=== PATIENT | male | born 1985 ===

== ENCOUNTER 2023-12-15 10:02 | Inpatient (IN) | payer OTHER, SELFPAY ==
[2023-12-15 10:12] VITALS: BP 147/92; PULSE 107; RESP 18; TEMP 36.8; O2SAT 100; BMI 39.9
--- NOTE | 2023-12-15 10:14 | ECG_ITS ---
Test Reason : od Blood Pressure : / mmHG Vent. Rate : 101 BPM Atrial Rate : 101 BPM P-R Int : 160 ms QRS Dur : 096 ms QT Int : 368 ms P-R-T Axes : 016 -12 029 degrees QTc Int : 477 ms Sinus tachycardia Minimal voltage criteria for LVH, may be normal variant ( Kirvin product ) Borderline ECG No previous ECGs available Referred By: Maria Alejandra Reyna Electronically Signed By:GENIA FLORES MD
--- NOTE | 2023-12-15 10:17 | ED_ITS ---
HPI - Psych General Chief Complaint: Psychiatric Symptoms Stated Complaint: SI Time Seen by Provider: 12/15/23 10:08 Source: patient, EMS and old records reviewed Mode of arrival: EMS Limitations: other (poor historian) History of Present Illness ED Provider: RICHIE HPI Narrative: 38 yo male with PMH of anxiety, depression who reports SI came in via triage in triage room starting to take handfuls of 25mg hydroxyzine. He also states in SI attempt he took 20mg duloxetine but unclear time and how much. He reports SI. He will not talk much about anything else. From his 90 day supply we have accounted for 67 tablets it was filled at start of November, Duloxetine 20mg DR filled start of october with 1 month supply , Vyvanse also filled october unclear if he ingested it complaint: suicidal ideation and feels depressed Onset (ago): unknown Duration: getting worse History of same: Yes Relieving factors: none Exacerbating factors: none Context: significant life stressor Associated psychiatric symptoms: depression and suicidal ideation Associated symptoms: denies other symptoms Treatments prior to arrival: none If self harm: admits thoughts of self harm, has plan and has acted on plan Details of plan: ingested in waiting room Related Data Allergies Allergy/AdvReac Type Severity Reaction Status Date / Time No Known Allergies Allergy Verified 12/15/23 10:14 Review of Systems 2 Review of Systems: ROS unable to be obtained due to poor cooperation [facility] Past Medical History Attestation statement: The following information was validated with the patient. Source: old records reviewed Medical History (Updated 12/15/23 @ 10:39 by Maria Alejandra Reyna DO) Anxiety Depression Social History Social History (Updated 12/15/23 @ 10:32 by Maria Alejandra Reyna DO) Patient Tobacco Use Status: Refuse Tobacco use screen Smoked in Last 30 Days: No Use of substances other than those prescribed or required for medical reasons: Refusing to respond Advance Directives: No Advance Directives Information Provided: No Physical Exam 2 Vital Signs: Vital Signs: Last Vital Signs Temp 97.5 F 12/15/23 15:57 Pulse 105 H 12/15/23 15:57 Resp 16 12/15/23 15:57 BP 157/95 H 12/15/23 15:57 Pulse Ox 98 12/15/23 15:57 O2 Del Method Room Air 12/15/23 15:57 BMI result Body Mass Index 39.9 Appearance: Alert. Oriented X3. No acute distress. not giving much history Eyes: Pupils equal, round and reactive to light. 3mm ENT: Pharynx normal. Neck: Normal inspection. Neck supple. CVS: Normal heart rate and rhythm. Pulses normal. Respiratory: No respiratory distress. Breath sounds normal. Abdomen: Soft and nontender. Skin: Skin warm and dry. Normal skin color. Normal skin turgor. Extremities: No lower extremity edema. No calf ttp Neuro: Oriented X 3. No motor deficit. No sensory deficit. CN 2-12 intact, no clonus or hyperreflexia Course Course Course Narrative: no acute change still same neuro exam pupils 3mm reactive no clonus no signs of hyperactivity awake and following commands 317pm repeat labs normal neg tox at 4hrs neg aspirin LFT and chem normal Reevaluation(s) Reevaluation #1: signed out to Dr. Tucker pending further workup Medications Administered Discontinued Medications Generic Name Dose Route Start Last Admin Trade Name Freq PRN Reason Stop Dose Admin Charcoal 50 gm 12/15/23 10:14 12/15/23 10:15 Activated Charcoal 50 Gm/240 Ml Oral.Susp PO 12/15/23 10:15 Not Given ONCE ONE Medical Decision Making Medical Decision Making MDM Narrative: 38 yo male with mental health disorders who comes with a backpack full of medications it is really unclear what he ingested. I do not have a good history from him - at this time EKG, charcoal ordered which he refuses, basic labs and S12 in place - once medically cleared will likely obs for 6 to 8 hours will refer to CARE team Differential Diagnosis Differential Diagnoses: The differential diagnosis associated with the presentation includes SI attempt, overdose Admission/Observation Consideration of admission/observation: Escalation of care including admission/observation considered physician observation started at 1152am pending clearance S12 signed Consult Healthcare Provider Management of the patient was discussed with: Behavioral Health Provider Lab Data [facility] Lab Attestation statement: I reviewed the patient's lab results. 12/15/23 10:32 12/15/23 14:36 Labs: Lab Results 12/15/23 12/15/23 12/15/23 Range/Units 10:32 14:36 15:24 WBC 9.9 (4.8-10.8) X10*3/uL RBC 5.46 (4.60-5.80) X10*6/uL Hgb 15.7 (14.0-18.0) g/dl Hct 46.2 (42.0-52.0) % MCV 84.6 (80.0-98.0) fL MCH 28.8 (27.0-33.0) pg MCHC 34.0 (31.0-36.0) g/dl RDW 13.3 (11.0-16.0) % Plt Count 413 H (160-400) X10*3/uL MPV 8.9 L (9.4-12.4) fL Immature Gran % (Auto) 0.6 H (0.0-0.4) % Neut % (Auto) 71.0 (45-73) % Lymph % (Auto) 20.5 (20-40) % [place] % (Auto) 5.5 (2-11) % Eos % (Auto) 1.9 (0-4) % Baso % (Auto) 0.5 (0-2) % Lymph # (Auto) 2.0 (1.2-4.9) X10*3/uL [place] # (Auto) 0.5 (0.1-1.2) X10*3/uL Eos # (Auto) 0.2 (0.0-0.4) X10*3/uL Baso # (Auto) 0.1 (0.0-0.2) X10*3/uL Abs Immat Gran (auto) 0.06 H (0.00-0.03) X10*3/uL Absolute Neuts (auto) 7.0 (2.0-8.3) x10*3/uL Absolute Nucleated RBC 0.000 (0.0-0.012) X10*3/uL Nucleated RBC % (auto) 0.0 (0.0-0.2) /100WBC Sodium 138 138 (135-145) mmol/L Potassium 3.8 4.6 D (3.3-5.1) mmol/L Chloride 103 103 (96-108) mmol/L Carbon Dioxide 23 28 (22-29) mmol/L Anion Gap 16 12 (12-20) BUN 18 H 17 H (9-16) mg/dL Creatinine 0.89 1.04 (0.5-1.4) mg/dL Estim Creat Clear Calc 126.7 108.5 Estimated GFR > 60 > 60 POC Glucose 119 H (60-115) mg/dL Random Glucose 130 H 123 H (60-115) mg/dL Calcium 9.9 9.6 (8.4-10.2) mg/dL Magnesium 2.1 (1.6-2.6) mg/dL Total Bilirubin 0.5 0.5 (0.0-1.0) mg/dL Direct Bilirubin 0.1 0.1 (0.0-0.5) mg/dL AST 25 34 (5-37) U/L ALT 29 30 (0-40) U/L Alkaline Phosphatase 108 111 (39-117) U/L Total Protein 8.2 H 8.2 H (6.5-8.0) g/dL Albumin 4.5 4.5 (3.5-5.0) g/dL Salicylates < 5.0 L < 5.0 L (15-30) mg/dL Acetaminophen < 3 < 3 (<30) mcg/mL Ethyl Alcohol < 10 mg/dL Independent Interpretation I performed an independent interpretation of an: EKG Interpretation: Rate: 101 Rhythm: sinus tachycardia [place]: left Normal P waves. Normal VER[place]NICA. Normal QRS complex. 96 ST T wave : no BUDDY qTC: 411 prior studies: no acute ischemia The study has been interpreted contemporaneously by me. EKG #2 Rate: 94 Rhythm:NSR [place]: left, LVH Normal P waves. Normal VERÓNICA. Normal QRS complex. 100 ST T wave : no BUDDY, no acute ischemia qTC: 470 prior studies: prior QRS 96 The study has been interpreted contemporaneously by me. EKG #3 Rate: 102 Rhythm: sinus tachycardia [place]: left Normal P waves. Normal VER[place]NICA. Normal QRS complex. 90 ST T wave : no acute ischemia qTC: 477 prior studies: QRS less The study has been interpreted contemporaneously by me. . Critical Care Time Critical Care Time Critical Care Time: Yes Total Critical Care Time: 45 Attestation: repeat labs, intervention of overdose, 3 EKGs, tele, review of records I attest to this time spent taking care of the patient Discharge Plan Discharge Clinical Impression: Suicidal ideation Patient Disposition: Still a Patient Interventions: Lamont-Suicide Risk Severity Scale Last Done: 12/15/23 10:22 Print Language: Pashto
--- NOTE | 2023-12-15 10:25 | PC.NURSE ---
pt refusing activated charcoal. Dr. Reyna notified
[2023-12-15 10:37] LABS: MANUAL DIFF FLAG NO
[2023-12-15 10:39] LABS: Basophils Absolute Auto 0.1 X10*3/uL (0.0-0.2); Basophils Percent Auto 0.5 % (0-2); Eosinophils Absolute Auto 0.2 X10*3/uL (0.0-0.4); Eosinophils Percent Auto 1.9 % (0-4); Hematocrit 46.2 % (42.0-52.0); Hemoglobin 15.7 g/dl (14.0-18.0); Imm Gran Abs Auto 0.06 X10*3/uL (0.00-0.03); Imm Gran Pct Auto 0.6 % (0.0-0.4); Lymphocytes Percent Auto 20.5 % (20-40); Mean Corpuscular Hemoglobin 28.8 pg (27.0-33.0); Mean Corpuscular Volume 84.6 fL (80.0-98.0); Mean Platelet Volume 8.9 fL (9.4-12.4); Monocytes Absolute Auto 0.5 X10*3/uL (0.1-1.2); Monocytes Percent Auto 5.5 % (2-11); Platelet Count 413 X10*3/uL (160-400); Red Blood Count 5.46 X10*6/uL (4.60-5.80); Red Cell Distribution Width 13.3 % (11.0-16.0); White Blood Count 9.9 X10*3/uL (4.8-10.8)
--- NOTE | 2023-12-15 10:42 | PC.NURSE ---
it is unclear how many meds the pt took. We ave accounted for [address] Reyna about calling poison control. At this time Dr Reyna said hold off as we do know know what the pt took. Pt refused activated charcoal. Plan to observe for 6-8 hours. labs, ekg.
[2023-12-15 10:55] LABS: Alanine Aminotransferase 29 U/L (0-40); Albumin Level 4.5 g/dL (3.5-5.0); Alkaline Phosphatase 108 U/L (39-117); Anion Gap 16 (12-20); Aspartate Amino Transferase 25 U/L (5-37); Bilirubin Direct 0.1 mg/dL (0.0-0.5); Bilirubin Total 0.5 mg/dL (0.0-1.0); Blood Urea Nitrogen 18 mg/dL (9-16); Calcium 9.9 mg/dL (8.4-10.2); Carbon Dioxide 23 mmol/L (22-29); Chloride 103 mmol/L (96-108); Creatinine Clr Calc Pharmacy 126.7; Estimated Glomerular Filt Rate > 60; Ethanol < 10 mg/dL; Glucose Random 130 mg/dL (60-115); Magnesium 2.1 mg/dL (1.6-2.6); Potassium 3.8 mmol/L (3.3-5.1); Sodium 138 mmol/L (135-145); Total Protein 8.2 g/dL (6.5-8.0)
[2023-12-15 10:56] LABS: Acetaminophen LAB < 3 mcg/mL (<30); Salicylate < 5.0 mg/dL (15-30)
--- NOTE | 2023-12-15 13:00 | ECG_ITS ---
Test Reason : overdose Blood Pressure : / mmHG Vent. Rate : 094 BPM Atrial Rate : 094 BPM P-R Int : 162 ms QRS Dur : 100 ms QT Int : 376 ms P-R-T Axes : 020 -04 022 degrees QTc Int : 470 ms Normal sinus rhythm Minimal voltage criteria for LVH, may be normal variant ( Bruno product ) Borderline ECG When compared with ECG of 15-DEC-2023 10:55, No significant change was found Referred By: Mraia Alejandra Reyna Electronically Signed By:GENIA FLORES MD
[2023-12-15 13:24] VITALS: BP 122/92; PULSE 103; RESP 18; TEMP 36.6; O2SAT 98
--- NOTE | 2023-12-15 15:00 | ECG_ITS ---
Test Reason : Overdose Blood Pressure : / mmHG Vent. Rate : 102 BPM Atrial Rate : 102 BPM P-R Int : 160 ms QRS Dur : 090 ms QT Int : 366 ms P-R-T Axes : 022 -11 022 degrees QTc Int : 477 ms Sinus tachycardia Minimal voltage criteria for LVH, may be normal variant ( Bruno product ) Possible Anterior infarct , age undetermined Abnormal ECG When compared with ECG of 15-DEC-2023 13:12, No significant change was found Referred By: Maria Alejandra Reyna Electronically Signed By:GENIA FLORES MD
[2023-12-15 15:06] LABS: Acetaminophen LAB < 3 mcg/mL (<30); Alanine Aminotransferase 30 U/L (0-40); Albumin Level 4.5 g/dL (3.5-5.0); Alkaline Phosphatase 111 U/L (39-117); Anion Gap 12 (12-20); Aspartate Amino Transferase 34 U/L (5-37); Bilirubin Direct 0.1 mg/dL (0.0-0.5); Bilirubin Total 0.5 mg/dL (0.0-1.0); Blood Urea Nitrogen 17 mg/dL (9-16); Calcium 9.6 mg/dL (8.4-10.2); Carbon Dioxide 28 mmol/L (22-29); Chloride 103 mmol/L (96-108); Creatinine Clr Calc Pharmacy 108.5; Estimated Glomerular Filt Rate > 60; Glucose Random 123 mg/dL (60-115); Potassium 4.6 mmol/L (3.3-5.1); Salicylate < 5.0 mg/dL (15-30); Sodium 138 mmol/L (135-145); Total Protein 8.2 g/dL (6.5-8.0)
--- NOTE | 2023-12-15 15:13 | MHC.EDTECH ---
3pm ECG completed and given to provider.
[2023-12-15 15:28] LABS: Glucose, Whole Blood 119 mg/dL (60-115)
--- NOTE | 2023-12-15 15:40 | PC.NURSE ---
pt reported to I:I sitter that he was hearing voices telling him to harm himself
[2023-12-15 15:57] VITALS: BP 157/95; PULSE 105; RESP 16; TEMP 36.4; O2SAT 98
--- NOTE | 2023-12-15 17:00 | ECG_ITS ---
Test Reason : overdose Blood Pressure : / mmHG Vent. Rate : 103 BPM Atrial Rate : 103 BPM P-R Int : 160 ms QRS Dur : 090 ms QT Int : 360 ms P-R-T Axes : 019 -13 034 degrees QTc Int : 471 ms Sinus tachycardia Minimal voltage criteria for LVH, may be normal variant ( Bruno product ) Possible Anterior infarct (cited on or before 15-DEC-2023) Abnormal ECG When compared with ECG of 15-DEC-2023 14:59, No significant change was found Referred By: Maria Alejandra Reyna Electronically Signed By:GENIA FLORES MD
--- NOTE | 2023-12-15 17:03 | MHC.EDTECH ---
pt used his bus monitor cord to strangled himself, stating he wants to kill himself.
--- NOTE | 2023-12-15 17:33 | MHC.EDTECH ---
ECG completed at 1720.
--- NOTE | 2023-12-15 18:04 | PC.NURSE ---
Assumed care of patient at 1800, patient is calm and cooperative, offering no complaints to this RN. Pt has flat affect, often staring into the distance when attempting to answer this RNs questions. Patient is aware of plan of care for CARE team kika now that he is medically cleared Pt reports he receives his medications from [facility] pharmacy in [place]. Pt is unable to recall any medication names at this time
--- NOTE | 2023-12-15 18:52 | PC.NURSE ---
patient appears to remain at rest respirations are even and unlabored patient appears in no distress
--- NOTE | 2023-12-15 21:47 | MHC.CARE ---
Patient was provided information regarding patient concerns or complaints while awaiting placement in the ED. It was explained that if dissatisfied with any services received that he is able to speak directly with a manager game or leases and land supervisor or if needed can contact the concern line and was provided the appropriate contact information. Pt was receptive to the resources provided at this time.
--- NOTE | 2023-12-16 00:12 | PC.ADMIT ---
Pt is a 38yo male, admitted on a 12b from the [facility] for SI and MDD. He has a past medical history of anxiety and depression. Patient came into the ED after a suicide attempt ingesting an unknown amount of personal medication, hydroxyzine and duloxetine. He refused charcoal to be administered in the ED. Lab work was completed and Urine toxicology refused. Patient did not talk much about anything else while in the POD. Patient arrived to M3 at 21:44 via wheelchair. Upon skin assessment, patient was found to have ekg stickers with leads attached to chest. Patient was asked to remove these which he then tried to tighten around his neck in an attempt of self harm. Staff was able to remove the leads with success. associate professor of kinesiology provider was notified and patient was placed on 1:1 for safety. Patient appears to be agitated and paranoid. He states AH They confuse me. They tell me not to trust anyone, but I don't know who to believe. Patient did not offer any other information and refused to speak with any staff. Poor eye contact was noted the entire time of trying to admit patient, which was not able to be done due to not complying nor speaking. Patient refused to sign any paperwork and refused vital signs. Order for PRN Ativan and Haldol was offered, but patient refused to take. Patient seen pacing hallway and standing at nurses station the entire shift, refusing to lay down for the night.
[2023-12-16] MEDS: LORazepam 1 MG TABLET 2 MG PO (01:00)
[2023-12-16 08:05] VITALS: BP 128/74; PULSE 104; RESP 16; TEMP 36.9; O2SAT 97
[2023-12-16 09:31] LABS: Estimated Average Glucose 117 mg/dL; Hemoglobin A1C 153.1763 umol/L; Hemoglobin A1c % 5.7 % (<6.0)
[2023-12-16 09:36] LABS: Cholesterol 252 mg/dL (<200); HDL Cholesterol 34 mg/dL (>40); LDL Cholesterol Calculated 182 mg/dL (<100); Magnesium 2.1 mg/dL (1.6-2.6); Triglycerides 183 mg/dL (<150)
[2023-12-16 10:17] LABS: Vitamin B12 607 pg/mL (200-900)
[2023-12-16 10:33] VITALS: BMI 41.7
[2023-12-16 11:22] LABS: Free T4 (Free Thyroxine) 1.23 ng/dL (0.71-1.85)
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
[2023-12-16] MEDS: risperiDONE 1 MG TABLET PO ×2 (12:44→22:10)
--- NOTE | 2023-12-16 14:11 | PHA.MEDREC ---
Pharmacy Consult ? Medication Reconciliation Pharmacy has completed the medication reconciliation, called [facility] in [place] who confirmed medications. [facility] also stated Testosterone was last filled in August 2023.
[2023-12-16 14:46] VITALS: BP 126/76; PULSE 101; RESP 16; TEMP 36.8; O2SAT 96
[2023-12-16] MEDS: carvediloL 12.5 MG TABLET PO ×2 (14:47→22:09)
[2023-12-16] MEDS: cloNIDine HCL 0.1 MG TABLET PO ×2 (14:48→22:09)
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
[2023-12-16 22:09] VITALS: BP 116/66; PULSE 96
[2023-12-16] MEDS: valACYclovir HCL 1,000 MG TABLET 1000 MG PO (22:10)
[2023-12-17 01:25] VITALS: TEMP 36.2
[2023-12-17] MEDS: Acetaminophen 325 MG TABLET 650 MG PO ×2 (01:29→20:42)
[2023-12-17 07:25] VITALS: BP 113/74; PULSE 104; RESP 14; TEMP 36.9; O2SAT 97
[2023-12-17 09:13] VITALS: BP 113/74; PULSE 104
[2023-12-17] MEDS: risperiDONE 1 MG TABLET PO ×2 (09:13→20:37)
[2023-12-17] MEDS: carvediloL 12.5 MG TABLET PO ×2 (09:13→20:36)
[2023-12-17 09:14] VITALS: BP 113/74
[2023-12-17] MEDS: cloNIDine HCL 0.1 MG TABLET PO ×2 (09:14→20:36)
--- NOTE | 2023-12-17 11:33 | P.PNPSI_ITS ---
Subjective Subjective Date of Service: 12/17/23 Reason For Visit: Depression, SI Interim History: Patient seen. He continues on 1:1 due to safety. He reports he is anxious and restless. Remains preoccupied and has latency of speech and slow in answering questions. Appears internally preoccupied. He was restless in the interview moving legs and having a hard time sitting still. Was resistant to mouth checks and security had to be called. We discussed utility if same with RN. Will hold off for now on calling security for mouth checks. We discussed his testosterone which he says he gets prescribed by [employer] and he takes it weekly. Last dose was last Tuesday. He also has Vyvanse prescribed he says. (Both didn't show up on the PDMP). Review of Systems Review of Systems ROS unable to be obtained due to poor cooperation Constitutional: Reports as per HPI Eyes: Reports as per HPI Reports as per HPI Cardiovascular: Reports as per HPI Respiratory: Reports as per HPI Gastrointestinal: Reports as per HPI Genitourinary: Reports as per HPI Musculoskeletal: Reports as per HPI Skin/Breast: Reports as per HPI Reports as per HPI Psychiatric: Reports as per HPI Endocrine: Reports as per HPI Hematologic/Lymphatic: Reports as per HPI Allergic/Immunologic: Reports as per HPI Mental Status Exam Mental Status Exam Patient Appearance: Appropriate Patient Orientation: Person Level of Consciousness: Awake and Alert Patient Behavior: Guarded, Suspicious, Anxious and Poor Eye Contact Mood Description: Suspicious and Anxious Affect Description: Blunted Speech Pattern: Clear Diagnostics Vital Signs (24Hr): Vital Signs - 24 hr 12/16/23 14:46 12/16/23 22:09 12/16/23 22:09 Temperature 98.2 F Pulse Rate 101 H 96 Respiratory Rate 16 Blood Pressure 126/76 116/66 116/66 Pulse Oximetry 96 Oxygen Delivery Method Room Air 12/17/23 01:25 12/17/23 07:25 12/17/23 09:13 Temperature 97.1 F 98.4 F Pulse Rate 104 H 104 H Respiratory Rate 14 Blood Pressure 113/74 113/74 Pulse Oximetry 97 Oxygen Delivery Method Room Air 12/17/23 09:14 Temperature Pulse Rate Respiratory Rate Blood Pressure 113/74 Pulse Oximetry Oxygen Delivery Method BMI result Body Mass Index 41.7 Labs 12/15/23 10:32 12/15/23 14:36 Labs: Laboratory Results - last 48 hr 12/15/23 12/15/23 12/16/23 14:36 15:24 08:53 Sodium 138 Potassium 4.6 D Chloride 103 Carbon Dioxide 28 Anion Gap 12 BUN 17 H Creatinine 1.04 Estim Creat Clear Calc 108.5 Estimated GFR > 60 POC Glucose 119 H Random Glucose 123 H Estimat Average Glucose 117 Hemoglobin A1c % 5.7 Calcium 9.6 Magnesium 2.1 Total Bilirubin 0.5 Direct Bilirubin 0.1 AST 34 ALT 30 Alkaline Phosphatase 111 Total Protein 8.2 H Albumin 4.5 Triglycerides 183 H Cholesterol 252 H LDL Cholesterol, Calc 182 H HDL Cholesterol 34 L Vitamin B12 607 Folate 13.0 TSH 2.40 Free T4 1.23 Salicylates < 5.0 L Acetaminophen < 3 Medications Medications Current Medications Acetaminophen (Acetaminophen 325 Mg Tablet) 650 mg PO Q6H PRN PRN Reason: Headache/Pain Mild Scale (1-3) Last Admin: 12/17/23 01:29 Dose: 650 mg Al Hydroxide/Mg Hydroxide (Magnesium Hydrox/Alum Hydrox 30 Ml Oral.Susp) 30 ml PO Q6H PRN PRN Reason: Heartburn/Nausea Albuterol Sulfate (Albuterol Sulfate 90 Mcg 8 Gm Inhaler) 2 puff INHALE Q6H PRN PRN Reason: Shortness of Breath Carvedilol (Carvedilol 12.5 Mg Tablet) 12.5 mg PO BID [facility]; Protocol Last Admin: 12/17/23 09:13 Dose: 12.5 mg Clonidine HCl (Clonidine Hcl 0.1 Mg Tablet) 0.1 mg PO BID [facility]; Protocol Last Admin: 12/17/23 09:14 Dose: 0.1 mg Magnesium Hydroxide (Milk Of Magnesia 30 Ml Oral.Susp) 30 ml PO DAILY PRN PRN Reason: Constipation Non-Formulary Medication (Lisdexamfetamine [Vyvanse]) 50 mg PO DAILY PRN PRN Reason: ADHD Risperidone (Risperidone 1 Mg Tablet) 1 mg PO BID [facility] Last Admin: 12/17/23 09:13 Dose: 1 mg Valacyclovir HCl (Valacyclovir Hcl 1,000 Mg Tablet) 1,000 mg PO BEDTIME [facility] Last Admin: 12/16/23 22:10 Dose: 1,000 mg Zolpidem Tartrate (Zolpidem Tartrate 5 Mg Tablet) 5 mg PO BEDTIME [facility] Last Admin: 12/16/23 22:20 Dose: Not Given Allergies Allergies Allergy/AdvReac Type Severity Reaction Status Date / Time No Known Allergies Allergy Verified 12/15/23 10:14 Assessment & Plan Assessment & Plan (1) MDD (major depressive disorder), recurrent, severe, with psychosis: Status: Acute Code(s): F33.3 - Major depressive disorder, recurrent, severe with psychotic symptoms (2) PTSD (post-traumatic stress disorder): Status: Acute Code(s): F43.10 - Post-traumatic stress disorder, unspecified (3) OCD (obsessive compulsive disorder): Status: Acute Code(s): F42.9 - Obsessive-compulsive disorder, unspecified (4) ADHD (attention deficit hyperactivity disorder): Status: Acute Code(s): F90.9 - Attention-deficit hyperactivity disorder, unspecified type Plan Patient is a 38-year-old transgender male who self presented to ER from [facility] due to suicidal ideation secondary to increased depressive symptoms. Plan: 12 b One-to-one Continue home medications; hold hydroxyzine and duloxetine for now Start: Risperdal 1 mg p.o. b.i.d. Obtain collateral Encourage groups Build rapport Discharge planning 12/16: Start Cogentin 0.5 mg BID. Collaterals from [facility] after weekend. Reason for continued inpatient stay Substantial Risk for: harm to self, inability to function and rapid decompensation Time Spent With Patient Time: Total time managing care of this patient today ____ minutes.
--- NOTE | 2023-12-17 14:21 | PC.NURSE ---
The pharmacy does not have Vyvanse. The patient was updated and will ask his mother to bring the medication in, pharmacy notified.
[2023-12-17 20:00] VITALS: BP 121/71; PULSE 92; RESP 16; TEMP 36.9; O2SAT 97
[2023-12-17] MEDS: valACYclovir HCL 1,000 MG TABLET 1000 MG PO (20:36)
[2023-12-17] MEDS: Benztropine Mesylate 0.5 MG TABLET PO (20:37)
[2023-12-18] MEDS: risperiDONE 1 MG TABLET PO ×2 (08:21→21:06)
[2023-12-18] MEDS: Benztropine Mesylate 0.5 MG TABLET PO ×2 (08:21→21:06)
[2023-12-18 08:33] VITALS: BP 118/70; PULSE 104; RESP 20; TEMP 36.8; O2SAT 97
[2023-12-18] MEDS: cloNIDine HCL 0.1 MG TABLET PO ×2 (08:36→21:06)
[2023-12-18] MEDS: carvediloL 12.5 MG TABLET PO ×2 (08:36→21:05)
--- NOTE | 2023-12-18 11:28 | HO.PSYCHPN ---
Subjective Subjective Date of Service: 12/18/23 Reason For Visit: Depression, SI Interim History: Patient seen. He continues on 1:1 due to safety. He is asking for his clothes back but he continues to endorse intermittent SI. Clarified policy re access to street clothes. He appears more organized today. He seems less internally preoccupied. No side effects with Risperidone. Cogentin may have helped with restlessness. Patient reports still a little difficult to interpret and he's ambivalent. He seems somewhat confused about his medications. He tells this mortgage underwriter that medications were lost but on discussing with RN, pharmacy has his medications but they were not all labeled correctly. Appears internally preoccupied. Reviewed the [facility] website (not through [employer]) and verified patient is prescribed Testosterone, Vyvanse 50 mg and Ambien 5 mg. However they were last filled in May 2023. Complains of intermittent hallucinations and SI. Review of Systems Review of Systems ROS unable to be obtained due to poor cooperation Constitutional: Reports as per HPI Eyes: Reports as per HPI Reports as per HPI Cardiovascular: Reports as per HPI Respiratory: Reports as per HPI Gastrointestinal: Reports as per HPI Genitourinary: Reports as per HPI Musculoskeletal: Reports as per HPI Skin/Breast: Reports as per HPI Reports as per HPI Psychiatric: Reports as per HPI Endocrine: Reports as per HPI Hematologic/Lymphatic: Reports as per HPI Allergic/Immunologic: Reports as per HPI Mental Status Exam Mental Status Exam Patient Appearance: Appropriate Patient Orientation: Person Level of Consciousness: Awake and Alert Patient Behavior: Guarded, Suspicious, Anxious and Poor Eye Contact Mood Description: Suspicious and Anxious Affect Description: Blunted Speech Pattern: Clear Diagnostics Vital Signs (24Hr): Vital Signs - 24 hr 12/17/23 20:00 12/18/23 08:33 Temperature 98.4 F 98.3 F Pulse Rate 92 104 H Respiratory Rate 16 20 Blood Pressure 121/71 118/70 Pulse Oximetry 97 97 Oxygen Delivery Method Room Air Room Air BMI result Body Mass Index 41.7 Labs 12/15/23 10:32 12/15/23 14:36 Medications Medications Current Medications Acetaminophen (Acetaminophen 325 Mg Tablet) 650 mg PO Q6H PRN PRN Reason: Headache/Pain Mild Scale (1-3) Last Admin: 12/17/23 20:42 Dose: 650 mg Al Hydroxide/Mg Hydroxide (Magnesium Hydrox/Alum Hydrox 30 Ml Oral.Susp) 30 ml PO Q6H PRN PRN Reason: Heartburn/Nausea Albuterol Sulfate (Albuterol Sulfate 90 Mcg 8 Gm Inhaler) 2 puff INHALE Q6H PRN PRN Reason: Shortness of Breath Benztropine Mesylate (Benztropine Mesylate 0.5 Mg Tablet) 0.5 mg PO BID [facility] Last Admin: 12/18/23 08:21 Dose: 0.5 mg Carvedilol (Carvedilol 12.5 Mg Tablet) 12.5 mg PO BID [facility]; Protocol Last Admin: 12/18/23 08:36 Dose: 12.5 mg Clonidine HCl (Clonidine Hcl 0.1 Mg Tablet) 0.1 mg PO BID [facility]; Protocol Last Admin: 12/18/23 08:36 Dose: 0.1 mg Magnesium Hydroxide (Milk Of Magnesia 30 Ml Oral.Susp) 30 ml PO DAILY PRN PRN Reason: Constipation Pt Own ( Lisdexamfetamine [ Vyvanse] 50 Mg Capsule) 50 mg PO DAILY PRN PRN Reason: ADHD Risperidone (Risperidone 1 Mg Tablet) 1 mg PO BID [facility] Last Admin: 12/18/23 08:21 Dose: 1 mg Valacyclovir HCl (Valacyclovir Hcl 1,000 Mg Tablet) 1,000 mg PO BEDTIME [facility] Last Admin: 12/17/23 20:36 Dose: 1,000 mg Zolpidem Tartrate (Zolpidem Tartrate 5 Mg Tablet) 5 mg PO BEDTIME [facility] Last Admin: 12/17/23 21:19 Dose: Not Given Allergies Allergies Allergy/AdvReac Type Severity Reaction Status Date / Time No Known Allergies Allergy Verified 12/15/23 10:14 Assessment & Plan Assessment & Plan (1) MDD (major depressive disorder), recurrent, severe, with psychosis: Status: Acute Code(s): F33.3 - Major depressive disorder, recurrent, severe with psychotic symptoms (2) PTSD (post-traumatic stress disorder): Status: Acute Code(s): F43.10 - Post-traumatic stress disorder, unspecified (3) OCD (obsessive compulsive disorder): Status: Acute Code(s): F42.9 - Obsessive-compulsive disorder, unspecified (4) ADHD (attention deficit hyperactivity disorder): Status: Acute Code(s): F90.9 - Attention-deficit hyperactivity disorder, unspecified type Plan Patient is a 38-year-old transgender male who self presented to ER from [facility] due to suicidal ideation secondary to increased depressive symptoms. Plan: 12 b One-to-one Continue home medications; hold hydroxyzine and duloxetine for now Start: Risperdal 1 mg p.o. b.i.d. Obtain collateral Encourage groups Build rapport Discharge planning 12/16: Start Cogentin 0.5 mg BID. [facility] 12/17: Consider Risperidone titration. Collateral information. Reason for continued inpatient stay Substantial Risk for: harm to self, inability to function and rapid decompensation Time Spent With Patient Time: Total time managing care of this patient today ____ minutes.
[2023-12-18 20:00] VITALS: BP 132/72; PULSE 89
[2023-12-18] MEDS: valACYclovir HCL 1,000 MG TABLET 1000 MG PO (21:05)
[2023-12-19 08:21] VITALS: BP 109/72; PULSE 96; RESP 16; TEMP 36.4; O2SAT 99
[2023-12-19] MEDS: risperiDONE 1 MG TABLET PO (08:24)
[2023-12-19] MEDS: cloNIDine HCL 0.1 MG TABLET PO ×2 (08:24→20:26)
[2023-12-19] MEDS: Benztropine Mesylate 0.5 MG TABLET PO ×2 (08:25→20:27)
[2023-12-19] MEDS: carvediloL 12.5 MG TABLET PO ×2 (08:25→20:26)
--- NOTE | 2023-12-19 10:15 | P.PNPSI_ITS ---
Subjective Subjective Date of Service: 12/19/23 Reason For Visit: Depression, SI Subjective Notes: Section 12B Interim History: Patient on 12B up on 12/21/23. Patient declined to sign conditional voluntary. Continues to present paranoid and anxious. Patient stated, I do not trust any of you . . Continues on one-to-one safety checks. T/W and director social service, Jessica, met with patients mother for family meeting. Patient's mother states she does not know patient's past medication trials since pt has been private regarding his treatment. She reports never seeing him this way before . Collateral to be obtained from outpatient providers. Risperidal increased to 1mg PO daily and 2mg PO bedtime. Medication Compliance: Yes Side effects from medications: No Review of Systems Constitutional: Reports as per HPI Eyes: Reports as per HPI Reports as per HPI Cardiovascular: Reports as per HPI Respiratory: Reports as per HPI Gastrointestinal: Reports as per HPI Genitourinary: Reports as per HPI Musculoskeletal: Reports as per HPI Skin/Breast: Reports as per HPI Reports as per HPI Psychiatric: Reports as per HPI Endocrine: Reports as per HPI Hematologic/Lymphatic: Reports as per HPI Allergic/Immunologic: Reports as per HPI Mental Status Exam Mental Status Exam Patient Appearance: Appropriate Patient Orientation: Person, Place and Situation Level of Consciousness: Awake and Alert Patient Behavior: Guarded, Suspicious, Anxious and Poor Eye Contact Mood Description: Suspicious and Anxious Affect Description: Blunted Ability to Follow Directions: Fair Speech Pattern: Clear Delusions: Paranoid Ideation Diagnostics Vital Signs (24Hr): Vital Signs - 24 hr 12/18/23 20:00 12/19/23 08:21 Temperature 97.6 F Pulse Rate 89 96 Respiratory Rate 16 Blood Pressure 132/72 109/72 Pulse Oximetry 99 Oxygen Delivery Method Room Air BMI result Body Mass Index 41.7 Labs 12/15/23 10:32 12/15/23 14:36 Medications Medications Current Medications Acetaminophen (Acetaminophen 325 Mg Tablet) 650 mg PO Q6H PRN PRN Reason: Headache/Pain Mild Scale (1-3) Last Admin: 12/17/23 20:42 Dose: 650 mg Al Hydroxide/Mg Hydroxide (Magnesium Hydrox/Alum Hydrox 30 Ml Oral.Susp) 30 ml PO Q6H PRN PRN Reason: Heartburn/Nausea Albuterol Sulfate (Albuterol Sulfate 90 Mcg 8 Gm Inhaler) 2 puff INHALE Q6H PRN PRN Reason: Shortness of Breath Benztropine Mesylate (Benztropine Mesylate 0.5 Mg Tablet) 0.5 mg PO BID [facility] Last Admin: 12/19/23 08:25 Dose: 0.5 mg Carvedilol (Carvedilol 12.5 Mg Tablet) 12.5 mg PO BID [facility]; Protocol Last Admin: 12/19/23 08:25 Dose: 12.5 mg Clonidine HCl (Clonidine Hcl 0.1 Mg Tablet) 0.1 mg PO BID [facility]; Protocol Last Admin: 12/19/23 08:24 Dose: 0.1 mg Magnesium Hydroxide (Milk Of Magnesia 30 Ml Oral.Susp) 30 ml PO DAILY PRN PRN Reason: Constipation Pt Own ( Lisdexamfetamine [ Vyvanse] 50 Mg Capsule) 50 mg PO DAILY PRN PRN Reason: ADHD Risperidone (Risperidone 1 Mg Tablet) 1 mg PO BID [facility] Last Admin: 12/19/23 08:24 Dose: 1 mg Valacyclovir HCl (Valacyclovir Hcl 1,000 Mg Tablet) 1,000 mg PO BEDTIME [facility] Last Admin: 12/18/23 21:05 Dose: 1,000 mg Zolpidem Tartrate (Zolpidem Tartrate 5 Mg Tablet) 5 mg PO BEDTIME [facility] Last Admin: 12/18/23 21:04 Dose: Not Given Allergies Allergies Allergy/AdvReac Type Severity Reaction Status Date / Time No Known Allergies Allergy Verified 12/15/23 10:14 Assessment & Plan Assessment & Plan (1) MDD (major depressive disorder), recurrent, severe, with psychosis: Status: Acute Code(s): F33.3 - Major depressive disorder, recurrent, severe with psychotic symptoms (2) PTSD (post-traumatic stress disorder): Status: Acute Code(s): F43.10 - Post-traumatic stress disorder, unspecified (3) OCD (obsessive compulsive disorder): Status: Acute Code(s): F42.9 - Obsessive-compulsive disorder, unspecified (4) ADHD (attention deficit hyperactivity disorder): Status: Acute Code(s): F90.9 - Attention-deficit hyperactivity disorder, unspecified type Plan Patient is a 38-year-old transgender male who self presented to ER from [facility] due to suicidal ideation secondary to increased depressive symptoms. Plan: 12 b One-to-one Continue home medications; hold hydroxyzine and duloxetine for now Start: Risperdal 1 mg p.o. b.i.d. Obtain collateral Encourage groups Build rapport Discharge planning 12/16: Start Cogentin 0.5 mg BID. Collaterals from [facility] after weekend. 12/17: Consider Risperidone titration. Collateral information. 12/18: Patient on 12B up on 12/21/23. Patient declined to sign conditional voluntary. Continues to present paranoid and anxious. Patient stated, I do not trust any of you . . Continues on one-to-one safety checks. T/W and director social service, Jessica, met with patients mother for family meeting. Patient's mother states she does not know patient's past medication trials since pt has been private regarding his treatment. She reports never seeing him this way before . Collateral to be obtained from outpatient providers. Risperidal increased to 1mg PO daily and 2mg PO bedtime. Patient educated on: diagnosis and medication risk/benefits Guardian/Caregiver educated on: diagnosis and medication risk/benefits Reason for continued inpatient stay Substantial Risk for: harm to self and med/psych decompensation Time Spent With Patient Time: Total time managing care of this patient today _30___ minutes.
[2023-12-19 20:00] VITALS: BP 110/74; PULSE 80; RESP 16; TEMP 37; O2SAT 96
[2023-12-19] MEDS: valACYclovir HCL 1,000 MG TABLET 1000 MG PO (20:25)
[2023-12-19] MEDS: risperiDONE 2 MG TABLET PO (20:26)
[2023-12-20 07:36] VITALS: BP 95/60; PULSE 86; RESP 18; TEMP 37.2; O2SAT 98
[2023-12-20] MEDS: cloNIDine HCL 0.1 MG TABLET PO ×2 (08:09→21:11)
[2023-12-20] MEDS: risperiDONE 1 MG TABLET PO (08:09)
[2023-12-20] MEDS: Benztropine Mesylate 0.5 MG TABLET PO ×2 (08:10→21:10)
[2023-12-20] MEDS: carvediloL 12.5 MG TABLET PO ×2 (08:10→21:10)
[2023-12-20] MEDS: Flu Vacc TS2024-25(6mos up)/PF 0.5 ML SYRINGE IM (08:34)
[2023-12-20] MEDS: Acetaminophen 325 MG TABLET 650 MG PO (08:42)
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
[2023-12-20] MEDS: DULoxetine HCl 20 MG CAPSULE.DR PO (14:02)
[2023-12-20 20:00] VITALS: BP 105/67; PULSE 84; RESP 16; TEMP 36.8; O2SAT 98
[2023-12-20] MEDS: risperiDONE 2 MG TABLET PO (21:10)
[2023-12-20] MEDS: valACYclovir HCL 1,000 MG TABLET 1000 MG PO (21:10)
[2023-12-21 07:40] VITALS: BP 105/69; PULSE 77; RESP 14; TEMP 36.9; O2SAT 98
[2023-12-21] MEDS: Benztropine Mesylate 0.5 MG TABLET PO ×2 (08:37→21:13)
[2023-12-21] MEDS: cloNIDine HCL 0.1 MG TABLET PO ×2 (08:37→21:13)
[2023-12-21] MEDS: carvediloL 12.5 MG TABLET PO ×2 (08:38→21:13)
[2023-12-21] MEDS: risperiDONE 1 MG TABLET PO (08:38)
[2023-12-21] MEDS: DULoxetine HCl 20 MG CAPSULE.DR PO (08:38)
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
[2023-12-21] MEDS: Acetaminophen 325 MG TABLET 650 MG PO (10:50)
[2023-12-21] MEDS: hydrOXYzine HCL 50 MG TABLET PO (16:28)
[2023-12-21 19:45] VITALS: BP 134/83; PULSE 69; RESP 18; TEMP 36.9; O2SAT 98
[2023-12-21 21:10] VITALS: BP 109/71; PULSE 71
[2023-12-21] MEDS: valACYclovir HCL 1,000 MG TABLET 1000 MG PO (21:13)
[2023-12-21] MEDS: risperiDONE 2 MG TABLET PO (21:13)
[2023-12-22 07:00] VITALS: BMI 41.9
[2023-12-22 08:00] VITALS: BP 108/73; PULSE 85; RESP 18; TEMP 36.7; O2SAT 97
[2023-12-22] MEDS: DULoxetine HCl 20 MG CAPSULE.DR PO (08:55)
[2023-12-22] MEDS: cloNIDine HCL 0.1 MG TABLET PO ×2 (08:55→21:24)
[2023-12-22] MEDS: Benztropine Mesylate 0.5 MG TABLET PO ×2 (08:55→21:23)
[2023-12-22] MEDS: risperiDONE 1 MG TABLET PO (08:55)
[2023-12-22] MEDS: carvediloL 12.5 MG TABLET PO ×2 (08:55→21:23)
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
[2023-12-22 19:15] VITALS: BP 108/67; PULSE 72; RESP 14; TEMP 36.9; O2SAT 96
[2023-12-22 21:20] VITALS: BP 104/72; PULSE 67; RESP 18; TEMP 36.6; O2SAT 97
[2023-12-22] MEDS: risperiDONE 2 MG TABLET PO (21:23)
[2023-12-22] MEDS: valACYclovir HCL 1,000 MG TABLET 1000 MG PO (21:24)
[2023-12-22] MEDS: Acetaminophen 325 MG TABLET 650 MG PO (21:29)
[2023-12-23 07:36] VITALS: BP 102/67; PULSE 71; RESP 16; TEMP 36.8; O2SAT 98
[2023-12-23] MEDS: cloNIDine HCL 0.1 MG TABLET PO ×2 (08:22→20:45)
[2023-12-23] MEDS: carvediloL 12.5 MG TABLET PO ×2 (08:22→20:45)
[2023-12-23] MEDS: risperiDONE 1 MG TABLET PO (08:23)
[2023-12-23] MEDS: DULoxetine HCl 20 MG CAPSULE.DR PO (08:23)
[2023-12-23] MEDS: Benztropine Mesylate 0.5 MG TABLET PO (08:24)
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
--- NOTE | 2023-12-23 11:37 | PC.NURSE ---
AJ signed release of information this morning for [employer] for medication reconciliation. I faxed the reease and called to follow up. Per Ktah at [facility] AJ is prescribed testosterone 100mg IM weekly.
[2023-12-23] MEDS: Testosterone Cypionate 200 MG/1 ML VIAL 100 MG IM (18:21)
[2023-12-23 20:00] VITALS: BP 102/65; PULSE 70; RESP 18; TEMP 36.8; O2SAT 98
[2023-12-23] MEDS: valACYclovir HCL 1,000 MG TABLET 1000 MG PO (20:44)
[2023-12-23] MEDS: Benztropine Mesylate 1 MG TABLET PO (20:44)
[2023-12-23] MEDS: risperiDONE 2 MG TABLET PO (20:44)
[2023-12-24 07:20] VITALS: BP 102/66; PULSE 78; RESP 16; TEMP 36.9; O2SAT 96
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
[2023-12-24 08:46] VITALS: BP 102/66; PULSE 78
[2023-12-24] MEDS: carvediloL 12.5 MG TABLET PO ×2 (08:46→20:44)
[2023-12-24] MEDS: cloNIDine HCL 0.1 MG TABLET PO ×2 (08:46→20:44)
[2023-12-24] MEDS: DULoxetine HCl 20 MG CAPSULE.DR 40 MG PO (08:47)
[2023-12-24 20:00] VITALS: BP 115/63; PULSE 89; RESP 16; TEMP 37; O2SAT 98
[2023-12-24] MEDS: risperiDONE 2 MG TABLET 4 MG PO (20:44)
[2023-12-24] MEDS: valACYclovir HCL 1,000 MG TABLET 1000 MG PO (20:44)
[2023-12-24] MEDS: Benztropine Mesylate 1 MG TABLET PO (20:44)
[2023-12-25 08:11] VITALS: BP 95/65; PULSE 72; RESP 18; TEMP 36.6; O2SAT 97
[2023-12-25] MEDS: cloNIDine HCL 0.1 MG TABLET PO ×2 (08:46→21:25)
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
[2023-12-25] MEDS: carvediloL 12.5 MG TABLET PO ×2 (08:47→21:26)
[2023-12-25] MEDS: DULoxetine HCl 20 MG CAPSULE.DR 40 MG PO (08:47)
[2023-12-25 21:20] VITALS: BP 107/70; PULSE 75; RESP 18; TEMP 36.4; O2SAT 98
[2023-12-25] MEDS: Benztropine Mesylate 1 MG TABLET PO (21:25)
[2023-12-25] MEDS: valACYclovir HCL 1,000 MG TABLET 1000 MG PO (21:25)
[2023-12-25] MEDS: risperiDONE 2 MG TABLET 4 MG PO (21:25)
[2023-12-25] MEDS: Acetaminophen 325 MG TABLET 650 MG PO (21:28)
[2023-12-26 08:03] VITALS: BP 103/72; PULSE 68; RESP 16; TEMP 36.9; O2SAT 99
[2023-12-26] MEDS: cloNIDine HCL 0.1 MG TABLET PO ×2 (08:20→21:38)
[2023-12-26] MEDS: carvediloL 12.5 MG TABLET PO ×2 (08:20→21:38)
[2023-12-26] MEDS: DULoxetine HCl 20 MG CAPSULE.DR 40 MG PO (08:20)
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
[2023-12-26 19:22] VITALS: BP 100/57; PULSE 85; RESP 16; TEMP 36.6; O2SAT 98
[2023-12-26 21:38] VITALS: BP 103/61; PULSE 73
[2023-12-26] MEDS: risperiDONE 2 MG TABLET 4 MG PO (21:38)
[2023-12-26] MEDS: valACYclovir HCL 1,000 MG TABLET 1000 MG PO (21:38)
[2023-12-26] MEDS: Benztropine Mesylate 1 MG TABLET PO (21:38)
[2023-12-27 07:38] VITALS: BP 103/65; PULSE 69; RESP 16; TEMP 37.1; O2SAT 98
[2023-12-27] MEDS: cloNIDine HCL 0.1 MG TABLET PO ×2 (08:14→21:02)
[2023-12-27] MEDS: carvediloL 12.5 MG TABLET PO ×2 (08:15→20:59)
[2023-12-27] MEDS: DULoxetine HCl 20 MG CAPSULE.DR 40 MG PO (08:16)
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
[2023-12-27 20:58] VITALS: BP 98/65; PULSE 74; RESP 16; TEMP 36.9; O2SAT 97
[2023-12-27] MEDS: valACYclovir HCL 1,000 MG TABLET 1000 MG PO (21:02)
[2023-12-27] MEDS: risperiDONE 2 MG TABLET 4 MG PO (21:02)
[2023-12-27] MEDS: Benztropine Mesylate 1 MG TABLET PO (21:02)
[2023-12-28 07:37] VITALS: BP 105/72; PULSE 72; RESP 14; TEMP 36.8; O2SAT 100
[2023-12-28 09:42] VITALS: BP 99/62; PULSE 71; RESP 14; O2SAT 97
[2023-12-28] MEDS: carvediloL 12.5 MG TABLET PO ×2 (09:47→20:12)
[2023-12-28] MEDS: DULoxetine HCl 20 MG CAPSULE.DR 40 MG PO (09:48)
[2023-12-28] MEDS: cloNIDine HCL 0.1 MG TABLET PO ×2 (09:48→20:11)
[2023-12-28] MEDS: modafiniL 100 MG TABLET PO (09:48)
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
[2023-12-28 20:00] VITALS: BP 105/77; PULSE 81; RESP 16; TEMP 36.4; O2SAT 98
[2023-12-28 20:11] VITALS: BP 105/77
[2023-12-28 20:12] VITALS: BP 105/77; PULSE 81
[2023-12-28] MEDS: valACYclovir HCL 1,000 MG TABLET 1000 MG PO (20:12)
[2023-12-28] MEDS: Benztropine Mesylate 1 MG TABLET PO (20:12)
[2023-12-28] MEDS: risperiDONE 2 MG TABLET 4 MG PO (20:12)
[2023-12-28] MEDS: Acetaminophen 325 MG TABLET 650 MG PO (20:25)
[2023-12-28] MEDS: hydrOXYzine HCL 50 MG TABLET PO (20:25)
[2023-12-29 07:00] VITALS: BMI 42.5
[2023-12-29 07:15] VITALS: BP 105/68; PULSE 77; RESP 16; TEMP 36.8; O2SAT 95
[2023-12-29 08:29] VITALS: BP 105/68; PULSE 120
[2023-12-29] MEDS: carvediloL 12.5 MG TABLET PO ×2 (08:29→21:22)
[2023-12-29 08:30] VITALS: BP 105/68
[2023-12-29] MEDS: cloNIDine HCL 0.1 MG TABLET PO ×2 (08:30→21:07)
[2023-12-29] MEDS: modafiniL 100 MG TABLET PO (08:30)
[2023-12-29] MEDS: DULoxetine HCl 20 MG CAPSULE.DR 40 MG PO (08:31)
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
[2023-12-29 13:07] VITALS: BMI 93.9
[2023-12-29 21:07] VITALS: BP 107/77
[2023-12-29] MEDS: risperiDONE 2 MG TABLET 4 MG PO (21:07)
[2023-12-29] MEDS: valACYclovir HCL 1,000 MG TABLET 1000 MG PO (21:08)
[2023-12-29] MEDS: Benztropine Mesylate 1 MG TABLET PO (21:08)
[2023-12-29 21:15] VITALS: BP 107/77; PULSE 80; RESP 18; TEMP 36.7; O2SAT 95
[2023-12-29 21:22] VITALS: BP 107/77; PULSE 80
[2023-12-30 07:37] VITALS: BP 103/60; PULSE 72; RESP 16; TEMP 36.9; O2SAT 96
[2023-12-30] MEDS: modafiniL 100 MG TABLET PO (08:47)
[2023-12-30] MEDS: cloNIDine HCL 0.1 MG TABLET 0.05 MG PO (08:47)
[2023-12-30] MEDS: DULoxetine HCl 20 MG CAPSULE.DR 40 MG PO (08:47)
[2023-12-30] MEDS: carvediloL 12.5 MG TABLET PO ×2 (08:48→22:28)
[2023-12-30] MEDS: Cholecalciferol (Vitamin D3) 25 MCG TABLET 50 MCG PO (12:59)
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
[2023-12-30 21:55] VITALS: BP 114/68; PULSE 80; RESP 16; TEMP 36.8; O2SAT 94
[2023-12-30] MEDS: valACYclovir HCL 1,000 MG TABLET 1000 MG PO (22:27)
[2023-12-30] MEDS: risperiDONE 2 MG TABLET 4 MG PO (22:28)
[2023-12-30] MEDS: Benztropine Mesylate 1 MG TABLET PO (22:28)
[2023-12-30] MEDS: cloNIDine HCL 0.1 MG TABLET PO (22:28)
[2023-12-30] MEDS: Testosterone Cypionate 200 MG/1 ML VIAL 100 MG IM (22:34)
[2023-12-31 08:00] VITALS: BP 105/64; PULSE 73; RESP 16; TEMP 36.4; O2SAT 96
[2023-12-31] MEDS: DULoxetine HCl 20 MG CAPSULE.DR 40 MG PO (09:08)
[2023-12-31 09:09] VITALS: BP 105/64; PULSE 73
[2023-12-31] MEDS: carvediloL 12.5 MG TABLET PO ×2 (09:09→21:26)
[2023-12-31] MEDS: Cholecalciferol (Vitamin D3) 25 MCG TABLET 50 MCG PO (09:12)
[2023-12-31] MEDS: modafiniL 100 MG TABLET 200 MG PO (09:12)
[2023-12-31 09:13] VITALS: BP 105/64
[2023-12-31] MEDS: cloNIDine HCL 0.1 MG TABLET 0.05 MG PO (09:13)
[2023-12-31] MEDS: Magnesium Hydrox/Alum Hydrox 30 ML ORAL.SUSP PO (09:29)
[2023-12-31] MEDS: Milk of Magnesia 30 ML ORAL.SUSP PO (09:40)
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
[2023-12-31 21:20] VITALS: BP 118/73; PULSE 82; RESP 16; TEMP 36.6; O2SAT 97
[2023-12-31] MEDS: valACYclovir HCL 1,000 MG TABLET 1000 MG PO (21:26)
[2023-12-31] MEDS: Benztropine Mesylate 1 MG TABLET PO (21:27)
[2023-12-31] MEDS: cloNIDine HCL 0.1 MG TABLET PO (21:27)
[2023-12-31] MEDS: risperiDONE 2 MG TABLET 4 MG PO (21:27)
[2024-01-01 08:00] VITALS: BP 113/68; PULSE 71; RESP 18; TEMP 36.9; O2SAT 98
[2024-01-01] MEDS: cloNIDine HCL 0.1 MG TABLET 0.05 MG PO (08:18)
[2024-01-01] MEDS: carvediloL 12.5 MG TABLET PO ×2 (08:20→20:46)
[2024-01-01] MEDS: DULoxetine HCl 20 MG CAPSULE.DR 40 MG PO (08:20)
[2024-01-01] MEDS: Cholecalciferol (Vitamin D3) 25 MCG TABLET 50 MCG PO (08:20)
[2024-01-01] MEDS: modafiniL 100 MG TABLET 200 MG PO (08:20)
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
[2024-01-01 20:39] VITALS: BP 119/68; PULSE 83; RESP 16; TEMP 36.9; O2SAT 97
[2024-01-01] MEDS: Benztropine Mesylate 1 MG TABLET PO (20:46)
[2024-01-01] MEDS: hydrOXYzine HCL 50 MG TABLET PO (20:47)
[2024-01-01] MEDS: risperiDONE 2 MG TABLET 4 MG PO (20:47)
[2024-01-01] MEDS: valACYclovir HCL 1,000 MG TABLET 1000 MG PO (20:47)
[2024-01-01] MEDS: cloNIDine HCL 0.1 MG TABLET PO (20:47)
[2024-01-02 07:31] VITALS: BP 113/70; PULSE 78; RESP 16; TEMP 36.9; O2SAT 96
[2024-01-02 08:00] VITALS: BP 113/70; PULSE 78; RESP 16; TEMP 36.9; O2SAT 96
[2024-01-02] MEDS: carvediloL 12.5 MG TABLET PO ×2 (08:15→20:50)
[2024-01-02] MEDS: Cholecalciferol (Vitamin D3) 25 MCG TABLET 50 MCG PO (08:15)
[2024-01-02] MEDS: cloNIDine HCL 0.1 MG TABLET 0.05 MG PO (08:15)
[2024-01-02] MEDS: modafiniL 100 MG TABLET 200 MG PO (08:16)
[2024-01-02] MEDS: DULoxetine HCl 20 MG CAPSULE.DR 40 MG PO (08:16)
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
[2024-01-02 19:56] VITALS: BP 109/71; PULSE 88; RESP 18; TEMP 36.7; O2SAT 97
[2024-01-02] MEDS: hydrOXYzine HCL 50 MG TABLET PO (20:46)
[2024-01-02] MEDS: cloNIDine HCL 0.1 MG TABLET PO (20:46)
[2024-01-02] MEDS: Benztropine Mesylate 1 MG TABLET PO (20:46)
[2024-01-02] MEDS: valACYclovir HCL 1,000 MG TABLET 1000 MG PO (20:47)
[2024-01-02] MEDS: risperiDONE 2 MG TABLET 4 MG PO (20:50)
[2024-01-02] MEDS: Zolpidem Tartrate 5 MG TABLET PO (21:46)
[2024-01-03 07:48] VITALS: BP 112/73; PULSE 81; RESP 16; TEMP 37; O2SAT 98
[2024-01-03] MEDS: carvediloL 12.5 MG TABLET PO ×2 (08:27→21:57)
[2024-01-03] MEDS: Cholecalciferol (Vitamin D3) 25 MCG TABLET 50 MCG PO (08:27)
[2024-01-03] MEDS: modafiniL 100 MG TABLET 200 MG PO (08:27)
[2024-01-03] MEDS: DULoxetine HCl 20 MG CAPSULE.DR 40 MG PO (08:28)
[2024-01-03] MEDS: cloNIDine HCL 0.1 MG TABLET 0.05 MG PO (08:28)
[2024-01-03] MEDS: Milk of Magnesia 30 ML ORAL.SUSP PO (08:32)
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
[2024-01-03 21:30] VITALS: BP 115/67; PULSE 82; RESP 16; TEMP 37.1; O2SAT 98
[2024-01-03] MEDS: cloNIDine HCL 0.1 MG TABLET PO (21:56)
[2024-01-03] MEDS: Benztropine Mesylate 1 MG TABLET PO (21:57)
[2024-01-03] MEDS: risperiDONE 2 MG TABLET 4 MG PO (21:57)
[2024-01-03] MEDS: valACYclovir HCL 1,000 MG TABLET 1000 MG PO (21:57)
[2024-01-04 07:59] VITALS: BP 108/67; PULSE 75; RESP 16; TEMP 36.7; O2SAT 98
[2024-01-04] MEDS: Cholecalciferol (Vitamin D3) 25 MCG TABLET 50 MCG PO (08:49)
[2024-01-04] MEDS: cloNIDine HCL 0.1 MG TABLET 0.05 MG PO (08:49)
[2024-01-04] MEDS: carvediloL 12.5 MG TABLET PO (08:49)
[2024-01-04] MEDS: modafiniL 100 MG TABLET 200 MG PO (08:50)
[2024-01-04] MEDS: DULoxetine HCl 20 MG CAPSULE.DR 40 MG PO (08:50)
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
== END 2024-01-04 11:00 | disposition home or self-care (01) | DRG 885 ==
LOC: HO.ED 17:56 → HO.PADLT16 20:17
PROVIDERS: Emergency Medicine; Admitting Provider Clinical Nurse Specialist Psychiatric/Mental Health, Adult; Emergency Provider Internal Medicine; Visit Provider Psychiatry & Neurology Psychiatry
DX: F33.3 Major depressive disorder, recurrent, severe with psychotic symptoms (principal); R45.851 Suicidal ideations; F68.11 Factitious disorder imposed on self, with predominantly psychological signs and symptoms; F43.10 Post-traumatic stress disorder, unspecified; F90.9 Attention-deficit hyperactivity disorder, unspecified type; F42.9 Obsessive-compulsive disorder, unspecified; Z23 Encounter for immunization; Z79.899 Other long term (current) drug therapy
CPT/HCPCS: 36415; 80048; 80061; 80076; 80143; 80179; 80307; 82607; 82746; 82947; 83036; 83735; 84439; 84443; 85025; 90656; 93005; 99285; J1071; S9485

== ENCOUNTER → 2023-12-15 10:14 | Outpatient (BNV) | payer OTHER, SELFPAY | PROVIDERS: Emergency Provider Emergency Medicine; Visit Provider Internal Medicine Cardiovascular Disease | DX: R94.31 Abnormal electrocardiogram [ECG] [EKG] (principal) | CPT/HCPCS: 93010 ==

== ENCOUNTER → 2023-12-15 20:08 | Outpatient (BNV) | payer OTHER, SELFPAY | PROVIDERS: Admitting Provider Clinical Nurse Specialist Psychiatric/Mental Health, Adult; Emergency Provider Internal Medicine; Visit Provider Registered Nurse | DX: F60.9 Personality disorder, unspecified (principal); F68.11 Factitious disorder imposed on self, with predominantly psychological signs and symptoms; F43.11 Post-traumatic stress disorder, acute | CPT/HCPCS: 90792; 99231; 99232; 99233 ==